=== PATIENT | male | born 1950 | race Caucasian/White ===

== ENCOUNTER 2024-04-22 10:23 | Emergency (ER) | payer MEDICARE, BC ==
[2024-04-22] MEDS: Diphtheria,Pertussis(Acell),Tetanus Vaccine 0.5 ML Syringe IM ONE (10:50)
[2024-04-22] MEDS: Lidocaine 1% 5 ML VIAL INJECT ONE (10:58)
[2024-04-22] MEDS: Take Home: Cephalexin 500 MG Cap, 6 Cap Pack PO ONE (11:20)
[2024-04-22] MEDS: Take Home: Doxycycline 100 MG Cap, 4 Cap Pack PO ONE (11:20)
[2024-04-22] MEDS: Take Home: Levofloxacin 500 MG Tab, 3 Tab Pack PO ONE (11:20)
[2024-04-22] MEDS: Bacitracin Oint 1 GM U/D Packet TOP ONE (11:21)
== END 2024-04-22 11:28 | disposition home or self-care (01) ==
LOC: DL.ED 10:23
DX: S60.351A Superficial foreign body of right thumb, initial encounter (principal); Z23 Encounter for immunization; W45.8XXA Other foreign body or object entering through skin, initial encounter
CPT/HCPCS: 90471; 90715; 99282; 99283-25; A9270-GY; J3490